=== PATIENT | male | born 1985 | race Two or more races ===

== ENCOUNTER 2020-03-04 15:03 | Emergency (ER) | payer MEDICAID ==
[~2020-03-04] VITALS: Ht 170.2 cm; Wt 72.7 kg
[2020-03-04 16:35] LABS: BASOPHILS % (AUTO) 0.5 % (0.0-2.0); EOSINOPHILS % (AUTO) 1.1 % (1.0-6.0); HEMATOCRIT 42.5 % (41-53); HEMOGLOBIN 13.9 g/dL (13.5-17.5); LYMPHOCYTES # (AUTO) 1.4 K/uL (1.0-4.8); LYMPHOCYTES % (AUTO) 29.7 % (22.0-44.0); MEAN CORPUSCULAR HEMOGLOBIN 27.7 pg (26.0-34.0); MEAN CORPUSCULAR HGB CONC 32.8 G/dL (31.0-37.0); MEAN CORPUSCULAR VOLUME 84 fL (80-100); MONOCYTES # (AUTO) 0.7 K/uL (0.1-1.0); MONOCYTES % (AUTO) 15.1 % (2.0-9.0); NEUTROPHILS # (AUTO) 2.6 K/uL (1.8-7.7); NEUTROPHILS % (AUTO) 53.6 % (40.0-70.0); PLATELET COUNT (AUTO) 293 K/uL (150-450); RED BLOOD CELL COUNT(AUTO) 5.03 MIL/uL (4.50-5.90); RED CELL DISTRIBUTION WIDTH 14.3 % (11.5-14.5)
[2020-03-04 16:50] LABS: ANION GAP 11 mmol/L (8-16); CALCIUM, TOTAL 8.9 mg/dL (8.8-10.5); CARBON DIOXIDE 26 mmol/L (22-29); CHLORIDE 104 mmol/L (98-107); CREATININE 1.59 mg/dL (0.60-1.30); GLOMERULAR FILTR. RATE CALC 50 mL/min (>60); GLUCOSE,RANDOM 112 mg/dL (70-110); POTASSIUM 3.9 mmol/L (3.5-5.1); SODIUM SERUM 141 mmol/L (136-145); UREA NITROGEN, BLOOD 13 mg/dL (7-18)
[2020-03-04 17:06] VITALS: BP 137/72
[2020-03-04 17:11] LABS: ALANINE AMINOTRANSFERASE 33 U/L (12-78); ALBUMIN 4.3 g/dL (3.4-5.0); ALKALINE PHOSPHATASE 73 U/L (46-116); ASPARTATE AMINOTRANSFERASE 31 U/L (15-37); BILIRUBIN,TOTAL 0.7 mg/dL (0.1-1.0); CREATINE KINASE, TOTAL ONLY 393 U/L (39-308); TOTAL PROTEIN, SERUM 8.2 g/dL (6.4-8.2)
[2020-03-04 17:57] LABS: AMPHET/METH SCREEN,URINE POSITIVE (NEGATIVE); BARBITURATE SCREEN, URINE NEGATIVE (NEGATIVE); BENZODIAZEPINES SCREEN,URINE NEGATIVE (NEGATIVE); CANNABINOID SCREEN,URINE NEGATIVE (NEGATIVE); COCAINE SCREEN,URINE NEGATIVE (NEGATIVE); METHADONE SCREEN, URINE NEGATIVE (NEGATIVE); OPIATE SCREEN,URINE NEGATIVE (NEGATIVE); PHENCYCLIDINE SCREEN,URINE NEGATIVE (NEGATIVE)
== END 2020-03-04 17:39 | disposition home or self-care (01) ==
LOC: EMS 15:04
DX: S40.022A Contusion of left upper arm, initial encounter (principal); S80.12XA Contusion of left lower leg, initial encounter; X58.XXXA Exposure to other specified factors, initial encounter; Y93.89 Activity, other specified; Y92.89 Other specified places as the place of occurrence of the external cause; Y99.8 Other external cause status
CPT/HCPCS: 36415; 80053; 80307; 82550; 85025; 99283; G0480

== ENCOUNTER 2023-07-19 17:49 | Inpatient (IN) | payer MEDICAID ==
[~2023-07-19] VITALS: Ht 170.2 cm; Wt 76.4 kg
[2023-07-19] MEDS ORDERED: ChlordiazePOXIDE HCL 25 MG CAPSULE PO ONE (20:15)
[2023-07-19] MEDS ORDERED: SODIUM CHLORIDE 0.9% 1,000 ML IV ONE (20:15)
[2023-07-19 20:42] LABS: BASOPHILS % (AUTO) 0.4 % (0.0-2.0); EOSINOPHILS % (AUTO) 1.3 % (1.0-6.0); HEMATOCRIT 44.2 % (41-53); HEMOGLOBIN 14.5 g/dL (13.5-17.5); LYMPHOCYTES # (AUTO) 2.9 K/uL (1.0-4.8); LYMPHOCYTES % (AUTO) 55.6 % (22.0-44.0); MEAN CORPUSCULAR HGB CONC 32.7 G/dL (31.0-37.0); MEAN CORPUSCULAR VOLUME 86 fL (80-100); MONOCYTES # (AUTO) 0.5 K/uL (0.1-1.0); MONOCYTES % (AUTO) 8.9 % (2.0-9.0); NEUTROPHILS # (AUTO) 1.8 K/uL (1.8-7.7); NEUTROPHILS % (AUTO) 33.8 % (40.0-70.0); PLATELET COUNT (AUTO) 328 K/uL (150-450); RED BLOOD CELL COUNT(AUTO) 5.16 MIL/uL (4.50-5.90); RED CELL DISTRIBUTION WIDTH 14.2 % (11.5-14.5); WHITE BLOOD COUNT (AUTO) 5.3 K/uL (4.5-11.0)
[2023-07-19 20:46] LABS: ANION GAP 13 mmol/L (8-16); CALCIUM, TOTAL 8.8 mg/dL (8.8-10.5); CARBON DIOXIDE 26 mmol/L (22-29); CHLORIDE 100 mmol/L (98-107); CREATININE 0.79 mg/dL (0.60-1.30); GLOMERULAR FILTR. RATE CALC > 60 mL/min (>60); GLUCOSE,RANDOM 103 mg/dL (70-110); POTASSIUM 3.4 mmol/L (3.5-5.1); SODIUM SERUM 139 mmol/L (136-145); UREA NITROGEN, BLOOD 9 mg/dL (7-18)
[2023-07-19 20:52] LABS: ALANINE AMINOTRANSFERASE 123 U/L (12-78); ALBUMIN 3.9 g/dL (3.4-5.0); ALKALINE PHOSPHATASE 85 U/L (46-116); ASPARTATE AMINOTRANSFERASE 54 U/L (15-37); BILIRUBIN,TOTAL 0.2 mg/dL (0.1-1.0); TOTAL PROTEIN, SERUM 7.5 g/dL (6.4-8.2)
[2023-07-19 21:25] LABS: COVID AG,FIA SOURCE NASAL SWAB
[2023-07-19 21:28] LABS: ALCOHOL, BLOOD (SERUM) 66 mg/dL (0-10)
[2023-07-19 22:03] LABS: SARS-COV2 (COVID) ANTIGEN,FIA Negative (Negative)
[2023-07-20] VITALS (10 sets, daily range): BP systolic 127–153; BP diastolic 56–109; PULSE 60–97; RESP 16–20; TEMP 97.6–98.1; O2SAT 95–98
[2023-07-20] MEDS ORDERED: ZOLPIDEM TARTRATE 10 MG TABLET PO PRN (00:45)
[2023-07-20] MEDS ORDERED: HALOPERIDOL 5 MG TABLET PO PRN (00:45)
[2023-07-20] MEDS ORDERED: LORazepam 2 MG TABLET PO PRN (00:45)
[2023-07-20] MEDS ORDERED: INFLUENZA VIRUS VACCINE QVS 2023-24 (6MO+)/PF 60 MCG/0.5 ML SYRINGE IM. ONE (04:45)
[2023-07-20] MEDS ORDERED: POTASSIUM CHLORIDE 20 MEQ ER TABLET PO ONE (07:15)
[2023-07-20 08:56] LABS: FREE T4 (FREE THYROXINE) 1.19 ng/dL (0.76-1.46); THYROID STIMULATING HORMONE 1.12 uIU/mL (0.36-3.74)
[2023-07-20] MEDS: ESCITALOPRAM OXALATE 10 MG TABLET PO SCH (12:19)
[2023-07-21 03:13] VITALS: BP 139/86; PULSE 79; RESP 17; TEMP 97.9; O2SAT 97
[2023-07-21 06:33] VITALS: BP 126/92; PULSE 58; RESP 18; TEMP 97.7; O2SAT 97
[2023-07-21 07:23] VITALS: BP 128/82; PULSE 61; RESP 16; TEMP 97.7; O2SAT 98
[2023-07-21 08:23] VITALS: BP 140/90; PULSE 66; RESP 18; TEMP 98.1; O2SAT 96
[2023-07-21 08:51] LABS: CHOL/HDL RATIO 2.9 (4.2-7.3)
[2023-07-21] MEDS: ESCITALOPRAM OXALATE 10 MG TABLET PO SCH (09:05)
[2023-07-21 21:16] VITALS: BP 136/79; PULSE 63; RESP 17; TEMP 97.6; O2SAT 100
[2023-07-22 08:49] VITALS: BP 139/86; PULSE 76; RESP 18; TEMP 98.4; O2SAT 96
[2023-07-22] MEDS: ESCITALOPRAM OXALATE 10 MG TABLET PO SCH (09:26)
[2023-07-22] MEDS ORDERED: ESCI-8 PO (12:46)
== END 2023-07-22 15:41 | disposition home or self-care (01) | DRG 753 ==
LOC: EMS 17:52 → B2S 07-20 02:10
PROVIDERS: ADMIT Psychiatry & Neurology Child & Adolescent Psychiatry; ATTEND Psychiatry & Neurology Child & Adolescent Psychiatry
DX: F31.4 Bipolar disorder, current episode depressed, severe, without psychotic features (principal); R45.851 Suicidal ideations; E87.6 Hypokalemia; R74.01 Elevation of levels of liver transaminase levels; F10.10 Alcohol abuse, uncomplicated; F11.90 Opioid use, unspecified, uncomplicated; G47.00 Insomnia, unspecified; Y90.3 Blood alcohol level of 60-79 mg/100 ml; Z79.899 Other long term (current) drug therapy; Z89.511 Acquired absence of right leg below knee; Z59.00 Homelessness unspecified; Z20.822 Contact with and (suspected) exposure to COVID-19
CPT/HCPCS: 80053; 80061; 84439; 84443; 85025; 99285; G0480; J7030